=== PATIENT | female | born 1985 | race Caucasian/White ===

== ENCOUNTER 2024-10-14 16:00 | Emergency (ER) | payer OTHER ==
[~2024-10-14] VITALS: Wt 69.9 kg
[~2024-10-14 16:00] MED LIST: CONCERTA18 MG PO; CONCERTA54 MG PO; DICLOFENAC POTA50 MG PO; NORFLEX100 MG PO; PRILOSEC20 MG PO; VYVANSE30 MG PO
[2024-10-14] MEDS ORDERED: SODIUM CHLORIDE 0.9% 1,000 ML IV ONE ×2 (16:25→16:46)
[2024-10-14] MEDS ORDERED: ADENOSINE 6 MG/2 ML VIAL IV ONE ×3 (16:25→16:44)
== END 2024-10-14 18:35 | disposition home or self-care (01) ==
LOC: ED 16:00
DX: O99.412 Diseases of the circulatory system complicating pregnancy, second trimester (principal); R00.2 Palpitations; Z3A.14 14 weeks gestation of pregnancy